=== PATIENT | female | born 1995 ===

== ENCOUNTER 2017-10-13 12:23 | Emergency (ER) | payer OTHER ==
[2017-10-13] MEDS ORDERED: Ibuprofen TAB* 800 MG PO ONE (14:14)
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
[2017-10-13 14:58] VITALS: BP 116/74
== END 2017-10-13 14:57 | disposition home or self-care (01) ==
LOC: ED 12:23
DX: S09.90XA Unspecified injury of head, initial encounter (principal); W04.XXXA Fall while being carried or supported by other persons, initial encounter; Y92.9 Unspecified place or not applicable
CPT/HCPCS: 99282; A9270-GY